=== PATIENT | male | born 1980 | race Caucasian/White ===

== ENCOUNTER → 2022-03-25 | Outpatient (CLI) | payer OTHER | LOC: PLD 14:03 → LAB SHORT 14:03 | DX: R21 Rash and other nonspecific skin eruption (principal) | CPT/HCPCS: 88312 ==

== ENCOUNTER 2022-05-20 06:01 | Emergency (ER) | payer OTHER ==
[~2022-05-20] VITALS: Ht 188 cm; Wt 104.3 kg
[2022-05-20] MEDS ORDERED: Simvastatin10 MG PO (07:09)
[2022-05-20 08:01] LABS: Influenza A, PCR NEGATIVE (NEGATIVE); Influenza B, PCR NEGATIVE (NEGATIVE); Resp Syncytial Virus, PCR NEGATIVE (NEGATIVE)
[2022-05-20 08:08] LABS: SARS-Cov-2 (COVID-19) PCR, MMC POSITIVE (NEGATIVE)
[2022-05-20] MEDS ORDERED: PAXLOVID 150-11 EACH PO (08:27)
== END 2022-05-20 08:40 | disposition home or self-care (01) ==
LOC: ER 06:01
PROVIDERS: Emergency Medicine
DX: U07.1 COVID-19 (principal)
CPT/HCPCS: 0241U